=== PATIENT | male | born 1945 | race Caucasian/White ===

== ENCOUNTER → 2017-06-22 | Outpatient (CLI) | payer MEDICARE, OTHER ==
[~2017-06-22] MED LIST: AMLO5TAB4 PO; ASPI81TA3 PO; ATOR40TA68 PO; CARV12.579 PO; FURO40TA4 PO; INSU100C SC; LANT3I SC; METO-429 PO; METO2.5T12 PO; PANT40TA3 PO; POTA20TA96 PO; SIMV20TA2 PO
--- NOTE | 2017-06-23 16:40 | RADRPT ---
PROCEDURE: XR Lumbar Spine. CLINICAL INDICATION: Lumbar spine pain with radiculopathy. TECHNIQUE: AP, lateral, and cone-down lateral view of the lumbar spine were obtained. COMPARISON: No prior studies are available for comparison. FINDINGS: The alignment of the lumbar spine is within normal limits. There is no significant listhesis There are anterior osteophytes from L1-S1 with mild to moderate narrowing of the intervertebral disc space s at at L1-2 and L2-3. There are mild associated discogenic endplate changes these levels. The vert ebral body heights are maintained. There is diffuse mild osteopenia. There is moderate facet spondy losis at L5-S1 with suggestion of neural foraminal narrowing at this level. The remaining neural fo ramina appear patent. The paraspinal soft tissues unremarkable. There is no evidence of fracture. The posterior elements are unremarkable. There is moderate atherosclerosis of the abdominal aorta w ithout evidence of aneurysm formation. IMPRESSION: 1. Multilevel mild to moderate spondylosis/degenerative enthesopathy, worst at L1-2 and L2-3. 2. Moderate facet spondylosis at L5-S1 with suggestion of neural foraminal narrowing at this level. 3. No evidence of fracture. RPTAT: [facility] .Jroge Castillo MD, Date Time Electronically viewed and signed by .Jorge Castillo MD, on 06/23/2017 16:39 .S/
== END | disposition home or self-care (01) ==
LOC: RAD 15:45
PROVIDERS: ATTEND Internal Medicine
DX: M54.41 Lumbago with sciatica, right side (principal)
CPT/HCPCS: 72100

== ENCOUNTER 2017-07-01 12:09 | Day surgery (SDC) | payer MEDICARE, OTHER ==
[2017-07-01] VITALS (15 sets, daily range): BP systolic 153–181; BP diastolic 60–85; PULSE 56–65; RESP 7–23; Ht 160 cm; Wt 66.1 kg
[~2017-07-01] VITALS: Ht 160 cm; Wt 66.1 kg
[~2017-07-01 12:09] MED LIST changes: -ATOR40TA68 PO; -CARV12.579 PO; -FURO40TA4 PO; -METO2.5T12 PO; -POTA20TA96 PO
--- NOTE | 2017-07-01 12:44 | RADRPT ---
PROCEDURE: Chest x-ray CLINICAL INDICATION: Preop TECHNIQUE: Chest single view COMPARISON: 06/14/2014 FINDINGS: As before there post CABG changes. Stable mild cardiomegaly and an sclerotic aortic calcification se en. Bony vessels are normal in caliber. Mild scarring in the left lower lung. Lungs otherwise clear. Costophrenic angles are sharp. There is previous right rotator cuff surgery. IMPRESSION: No acute cardiopulmonary disease. Stable mild cardiomegaly and an sclerotic aortic calcification Left lower lung scarring Status post CABG RPTAT: HH .Shaan Messer MD, Date Time Electronically viewed and signed by .Shaan Messer MD, on 07/01/2017 12:44 .W/
[2017-07-01] MEDS ORDERED: HEPARIN 1000 UNITS/ML 10 ML INJ ONE (13:21)
[2017-07-01] MEDS ORDERED: LIDOCAINE 1% (MPF) 30 ML INJ ONE (13:22)
[2017-07-01] MEDS ORDERED: METO2.5T12 PO (13:26)
[2017-07-01] MEDS ORDERED: ATOR40TA68 PO (13:26)
[2017-07-01] MEDS ORDERED: FURO40TA4 PO (13:26)
[2017-07-01] MEDS ORDERED: POTA20TA96 PO (13:26)
[2017-07-01] MEDS ORDERED: CARV12.579 PO (13:26)
[2017-07-01 13:33] LABS: BASOPHILS % 0.7 % (0.0-2.0); EOSINOPHILS # 0.1 10^3/ul (0.0-0.5); EOSINOPHILS % 1.6 % (0.0-7.0); HEMATOCRIT 29.2 % (42.0-52.0); HEMOGLOBIN 10.5 g/dl (14.0-18.0); LYMPHOCYTES # 0.8 10^3/ul (0.8-2.9); LYMPHOCYTES % 14.3 % (15.0-51.0); MEAN CORPUSCULAR HEMOGLOBIN 29.1 pg (29.0-33.0); MEAN CORPUSCULAR VOLUME 80.9 fl (82.0-101.0); MEAN PLATELET VOLUME 12.1 fl (7.4-10.4); MONOCYTE # 0.8 10^3/ul (0.3-0.9); MONOCYTES % 14.3 % (0.0-11.0); NEUTROPHILS % 68.8 % (39.0-77.0); PLATELET COUNT 271 10^3/UL (140-415); RED BLOOD COUNT 3.61 10^6/ul (4.70-6.10); WHITE BLOOD COUNT 5.8 10^3/ul (4.8-10.8)
[2017-07-01 13:53] LABS: ADD UMIC YES; UR ASCORBIC ACID NEGATIVE (NEGATIVE); UR BACTERIA FEW /HPF (NONE SEEN); UR BILIRUBIN (Dip) NEGATIVE (NEGATIVE); UR BLOOD (Dip) NEGATIVE (NEGATIVE); UR CLARITY CLEAR (CLEAR); UR COLOR YELLOW (YELLOW); UR GLUCOSE (Dip) 2+ mg/dL (NEGATIVE); UR KETONES (Dip) NEGATIVE (NEGATIVE); UR LEUKOCYTE ESTERASE (Dip) NEGATIVE Leu/ul (NEGATIVE); UR NITRITE (Dip) NEGATIVE (NEGATIVE); UR RBC 2 /HPF (0-5); UR SPECIFIC GRAVITY (Dip) 1.013 (1.003-1.030); UR TOTAL PROTEIN (Dip) 3+ mg/dl (NEGATIVE); UR UROBILINOGEN (Dip) NEGATIVE (NEGATIVE)
[2017-07-01 13:58] LABS: INR 0.86; PARTIAL THROMBOPLASTIN TIME 28.3 Sec (25.0-35.0); PROTIME 11.8 Sec (11.9-14.9); PT RATIO 0.9
[2017-07-01] MEDS ORDERED: MIDAZOLAM 1 MG/ML 2 ML INJ ONE (14:14)
[2017-07-01] MEDS ORDERED: FENTAnyl 50 MCG/ML VIAL ONE (14:14)
[2017-07-01] MEDS ORDERED: PROPOFOL 20 ML ONE ×2 (14:14→15:32)
[2017-07-01] MEDS ORDERED: ROPIVACAINE 0.2% 20 ML VIAL ONE (14:15)
[2017-07-01 14:25] LABS: CALCIUM 8.8 mg/dl (8.4-10.2); CREATININE 4.36 mg/dl (0.61-1.24); POTASSIUM 2.4 mmol/L (3.5-5.1)
[2017-07-01] MEDS ORDERED: HEPARIN 1000 UNITS/ML 10 ML INJ IRR ONE (14:25)
[2017-07-01] MEDS ORDERED: LIDOCAINE 1% (MPF) 30 ML INJ INJ ONE (14:25)
[2017-07-01] MEDS ORDERED: CEFAZOLIN 1 GM INJ ONE (14:28)
[2017-07-01] MEDS ORDERED: POTASSIUM CHLORIDE 50 ML ONE ×2 (14:35→14:36)
--- NOTE | 2017-07-01 14:54 | HPN ---
Date/Time of Note Date/Time of Note DATE: 07/01/17 TIME: 14:54 Interval H&P Admission Note Pt. seen H&P reviewed: No system changes JESÚS ESTES MD Jul 01, 2017 14:54
--- NOTE | 2017-07-01 15:52 | SIPON ---
Date/Time of Note Date/Time of Note DATE: 07/01/17 TIME: 15:52 Operative Report Preoperative Diagnosis ESRD Postoperative Diagnosis same Operation/Procedure Performed L arm brachiocephalic AVF creation Surgeon see signature line benefits assistant none Anesthesia: other Estimated blood loss: minimal Transfusion Required none Specimen none Grafts/Implants none Complications none JESÚS ESTES MD Jul 01, 2017 15:52
[2017-07-01] MEDS ORDERED: ONDANSETRON 4 MG INJ IV PRN (16:00)
[2017-07-01] MEDS ORDERED: LABETALOL HCL 20MG INJ IV PRN (16:00)
[2017-07-01] MEDS ORDERED: HYDROmorphONE (0.2 MG/ML) 10ML SYG IV PRN ×3 (16:00)
[2017-07-01] MEDS ORDERED: hydrALAzine 20 MG INJ IV PRN (16:00)
--- NOTE | 2017-07-01 19:20 | OPR ---
DATE OF OPERATION: 07/01/2017 PREOPERATIVE DIAGNOSIS: Chronic kidney disease stage V. POSTOPERATIVE DIAGNOSIS: Chronic kidney disease stage V. PROCEDURE PERFORMED: Creation of left arm brachiocephalic AV fistula. ANESTHESIA: Local with regional block of the left arm. SURGEON: Jesús Jamison MD ESTIMATED BLOOD LOSS: Minimal. COMPLICATIONS: No intraprocedural complications. INDICATIONS: This is a 71-year-old diabetic hypertensive gentleman. He now has chronic kidney dise ase, nearing end-stage renal disease. He is right-handed. Dr. Regalado asked me to place a fistu la for future dialysis access. DESCRIPTION OF PROCEDURE: Patient was brought to the operating room and placed on the table in supi ne position. I insonated the left arm veins. The cephalic vein was good from the wrist all the way up to the upper arm, but his radial pulse is not very good. I looked at the artery with ultrasound and it is very heavily calcified and small so I thought the better option would be to go for a [facility] hiocephalic. Although he has a good cephalic vein in the forearm, the artery is just not good at th e wrist. I marked the vein on the skin and from the elbow up and I marked the brachial artery. The n, once he was prepped and draped in the usual sterile fashion I injected across the antecubital cre ase using about 10 mL of 1% Xylocaine and made an incision across the crease. I carefully dissected out the cephalic vein. It divided into 2 or 3 branches. I ligated each of these distally and divi ded them. There were 2 large branches distally. I divided the septum between the 2 and created a h ood at the end of the vein. I then carefully divided the connective tissue overlying the brachial a rtery pulse. I carefully dissected out the brachial artery. I then clamped it proximally and dista lly. It was a good artery. It was a good 5 to 6 mm in diameter. I made an anterior arteriotomy 8 mm in length. I then anastomosed the end of the cephalic vein to the side of the brachial artery us ing 6-0 Prolene suture in a running standard vascular surgical fashion. I removed the clamps. Ther e was a good thrill in the fistula. There was good hemostasis. I closed the skin incision in 2 lay ers using an inner layer of 3-0 Vicryl and an outer layer of 4-0 Monocryl subcuticular sutures. Crispin rile dressing was applied. There was a really good strong thrill and still palpable radial pulse an d his hand was warm and pink. He was then transferred to recovery room in stable condition. He kishore erated the procedure well without any complications. Dictated By: JESÚS HAINES/CARLA Conf#: [id number] DID#: [id number] CC: RAINE REGALADO MD;*EndCC*
--- NOTE | 2017-07-05 14:24 | RADRPT ---
Vent Rate: 64 bpm RR Interval: 0 msec MN Interval: 158 msec QRS Duration: 72 msec QT Interval: 438 msec QTC Interval: 451 msec P-R-T [place]: 59 - 52 - 68 degrees Sinus rhythm with premature atrial complexes Nonspecific T wave abnormality Abnormal ECG Electronically Signed By: Yoandy Newton [id number]
== END 2017-07-01 18:00 | disposition home or self-care (01) ==
LOC: SDS 12:09
PROVIDERS: ATTEND Surgery Vascular Surgery
DX: N18.6 End stage renal disease (principal); I12.0 Hypertensive chronic kidney disease with stage 5 chronic kidney disease or end stage renal disease; N18.5 Chronic kidney disease, stage 5; I25.10 Atherosclerotic heart disease of native coronary artery without angina pectoris; E11.9 Type 2 diabetes mellitus without complications; Z95.1 Presence of aortocoronary bypass graft
CPT/HCPCS: 36821; 71010; 80048; 81001; 82962; 84132; 85025; 85610; 85730; 93005; J0690; J1644; J2250; J2795; J3010; J3480

== ENCOUNTER 2017-08-23 13:12 | Inpatient (IN) | END 2017-08-27 11:45 | disposition home or self-care (01) | DRG 683 ==

== ENCOUNTER 2017-10-28 09:12 | Inpatient (IN) | END 2017-10-31 16:20 | disposition home or self-care (01) | DRG 682 ==